=== PATIENT | female | born 1975 | race Caucasian/White ===

== ENCOUNTER → 2017-10-06 | Outpatient (CLI) | payer OTHER ==
[~2017-10-06] MED LIST: FLEXERIL 1010 MG/TAB PO; IBU800 M1 PO; MOTRIN 600600 MG/TAB PO; PERCOCET 325 MG1 TA2 PO; SYNTHROID0.088 MG/T PO
== END ==
LOC: MC.RAD 07:30
DX: R92.2 Inconclusive mammogram (principal); M25.552 Pain in left hip

== ENCOUNTER → 2018-07-18 | Outpatient (CLI) | payer OTHER | LOC: MC.RAD 13:00 | DX: N63.20 Unspecified lump in the left breast, unspecified quadrant (principal) | CPT/HCPCS: G0279 ==